=== PATIENT | female | born 1940 | race Caucasian/White ===

== ENCOUNTER 2019-05-22 12:01 | Observation (INO) | payer MEDICARE ==
[~2019-05-22] VITALS: Ht 152.4 cm; Wt 70.8 kg
[2019-05-22 12:55] LABS: BASOPHILS % (AUTO) 0.8 % (0.0-5.0); EOSINOPHILS % (AUTO) 3.2 % (0.0-8.0); LYMPHOCYTES % (AUTO) 17.1 % (21.0-51.0); MEAN CORPUSCULAR HEMOGLOBIN 30.5 pg (27.0-33.0); MEAN CORPUSCULAR HGB CONC 33.9 g/dL (32.0-36.0); MEAN CORPUSCULAR VOLUME 89.9 fL (79-99); MONOCYTES % (AUTO) 6.9 % (3.0-13.0); NUCLEATED RED BLOOD CELLS 0.1 % (0.0-0.19); PLATELET COUNT (AUTO) 246 K/uL (130-400); RED BLOOD CELL COUNT(AUTO) 4.78 MIL/uL (4.00-5.50); RED CELL DISTRIBUTION WIDTH 13.1 % (11.0-15.5); WHITE BLOOD COUNT (AUTO) 8.2 K/uL (4.8-10.8)
[2019-05-22 13:03] LABS: CREATININE 0.9 mg/dL (0.5-1.5); POTASSIUM 3.6 mmol/L (3.5-5.1)
[2019-05-22 13:07] LABS: ALBUMIN 3.8 g/dL (3.5-5.0); BILIRUBIN,TOTAL 0.4 mg/dL (0.2-1.0); TOTAL PROTEIN, SERUM 6.9 g/dL (6.0-8.3)
[2019-05-22] MEDS ORDERED: DiphenhydrAMINE HCL 50 MG/ML VIAL IVP PRN (16:15)
[2019-05-22] MEDS ORDERED: POTASSIUM CHLORIDE 10% ELIXIR 20 MEQ/15 ML UDCUP PO PRN (16:15)
[2019-05-22] MEDS ORDERED: POTASSIUM CHLORIDE 20 MEQ ERTAB PO PRN (16:15)
[2019-05-22] MEDS ORDERED: LIDOCAINE HCL-MPF 1% 2ML VIAL IJ PRN (16:15)
[2019-05-22] MEDS ORDERED: GUAIFENESIN-DM 200/20 MG 10 ML PO PRN (16:15)
[2019-05-22] MEDS ORDERED: ONDANSETRON HCL 4 MG/2 ML VIAL IVP PRN (16:15)
[2019-05-22] MEDS ORDERED: POTASSIUM CHLORIDE 20MEQ/100ML 100 ML IV PRN (16:15)
[2019-05-22] MEDS ORDERED: SODIUM CHLORIDE 0.9% 10 ML VIAL IVP SCH (16:15)
[2019-05-22] MEDS ORDERED: ZOLPIDEM TARTRATE 5 MG TAB PO PRN (16:15)
[2019-05-22] MEDS ORDERED: ACETAMINOPHEN 325 MG TAB PO PRN ×2 (16:15)
[2019-05-22] MEDS ORDERED: CLONIDINE HCL 0.1 MG TABLET PO PRN (16:15)
[2019-05-22] MEDS ORDERED: LACTULOSE 20 GM/30 ML UDCUP PO PRN (16:15)
[2019-05-22] MEDS ORDERED: NITROGLYCERIN 0.4 MG SL TAB SL PRN (16:15)
[2019-05-22] MEDS ORDERED: FUROSEMIDE 10 MG/ML 2ML VIAL IVP SCH (16:15)
[2019-05-22] MEDS ORDERED: MAG HYDROX/AL HYDROX/SIMETH ES 30 ML SUSP UDCUP PO PRN (16:15)
[2019-05-22] MEDS ORDERED: DIPHENHYDRAMINE HCL 25 MG CAPSULE PO PRN (16:15)
--- NOTE | 2019-05-22 16:30 | NUR ---
Pt and in [facility], pt visually upset, noted to be barefoot, and have very unsteady gait. Claim they do not understand why they are here, "no one has told us anything". Pt and do not recall being at [facility] office today, informed charge nurse they are here for " a scheduled surgery". Also concerned that their belongings were left downstairs. Called to ER nurse, who states no belongings left behind. ER nurse states she had spoken with them multiple times explaining reason for visit. Escorted back to room, explained reason for the direct admission from [facility] office was for generalized weakness and swelling to lower extremities. Discussed details regarding plan of care, including cxr, labs, lasix, hall monitor. became upset, did not allow hall monitor placement. comforting her. Will provide space and attempt placement when calmer.
--- NOTE | 2019-05-22 17:56 | NUR ---
THE PATIENT WAS SEEMED CONFUSED AND EXPLAINED TO THE PATIENT AND THE THAT IT IS VERY ESSENTIAL FOR THE PATIENT TO STAY ADMITTED TO WORK HER UP AND TO KNOW THE REASON FOR THE SWELLING OF HER LOWER EXTREMITIES. THE PATIENT VERBALIZED THAT SHE HAS NOT BEEN TREATED WELL. THAT SHE HAS BEEN POKED AND SHE HAS TO GO WITH SEVERAL TEST AND SHE DON'T LIKE IT. SHE VERBALIZED THAT SHE DON'T KNOW WHY SHE IS HERE AND HOW SHE CAME TO THE HOSPITAL. I EXPLAINED TO THE PATIENT AND THE THAT DR. DEAN SEND THEM FROM THE CLINIC. THE PATIENT INSIST THAT SHE WANTED TO LEAVE. FOR FURTHER EXPLANATION AND INFORMATION THE PATIENT AND THE STILL WANTED TO LEAVE AGAINST MEDICAL ADVICED. I INFORM CHARGE NURSE MARTÍN WHICH SHE PROCEED TO TALK WITH THEM WELL BUT TO NO AVAIL. CHARGE NURSE MARTÍN INFORM DR. DEAN ABOUT THE INCIDENT.
[2019-05-22 18:41] VITALS: BP 146/55
--- NOTE | 2019-05-22 19:23 | NUR ---
Was notified by primary nurse that Pt and have left AMA. Signed AMA form in chart. Notified Dr. Brown.
[2019-05-22] MEDS ORDERED: FAMOTIDINE 20MG TAB 20 MG TAB PO SCH (21:00)
== END 2019-05-22 19:16 | disposition left against medical advice (07) ==
LOC: EDH 12:01 → EDHIP 12:02 → 3CH 15:48
PROVIDERS: ADMIT Family Medicine; ATTEND Family Medicine
DX: R53.1 Weakness (principal); R60.0 Localized edema; I10 Essential (primary) hypertension; Z87.891 Personal history of nicotine dependence; Z90.49 Acquired absence of other specified parts of digestive tract; Z79.899 Other long term (current) drug therapy
CPT/HCPCS: 36415; 71045; 80053; 84443; 85025; 87040 ×2; 96374; 99284; G0378 ×8; J1940